=== PATIENT | male | born 1965 | race Caucasian/White ===

== ENCOUNTER 2016-09-08 22:19 | Inpatient (IN) | payer BC ==
[~2016-09-08] VITALS: Ht 172.7 cm; Wt 113.5 kg
[~2016-09-08 22:19] MED LIST: ALEVE220 M2 PO; AMLODIPINE-BEN1 EACH PO; CLOPIDOGREL75 MG PO; DAILY VALUE1 EACH PO; DICLOFENAC SODI50 MG PO; ESOMEPRAZOLE MA40 MG PO; FENOFIBRATE145 M1 PO; FORTAMET500 M1 PO; HYGROTON25 MG PO; IMDUR30 MG PO; LOSARTAN POTASS25 MG PO; LOTREL 10/21 CAPSULE PO; LOTREL 10/41 CAPSULE PO; LOTREL 5/201 CAPSULE PO; METFORMIN HCL500 MG PO; METOPROLOL SUC100 MG PO; METOPROLOL TAR100 MG PO; NAPROXEN500 MG PO; NASONEX17 GM BOTH NARES; NEXIUM20 MG PO; NITROSTAT0.4 MG SL; SIMVASTATIN40 MG PO; SIMVASTATIN80 MG PO; ST. JOSEPH ASPI81 MG PO; VENTOLIN HFA18 GM IH
[2016-09-08 22:54] LABS: HEMATOCRIT 42.5 % (38.0-50.0); MCH 28.1 PG (29.0-34.0); MCHC 33.4 G/DL (30.0-36.0); MEAN PLAT.VOLUME 10.4 uM^3 (9.0-12.4); PLATELET COUNT 291 K/uL (156-360); RBC DIS.WIDTH-CV 12.8 % (11.8-14.6); RBC DIS.WIDTH-SD 38.8 % (39-53); RED BLOOD COUNT 5.06 M/uL (4.00-5.50); WHITE BLOOD COUNT 8.2 K/uL (4.1-10.2)
[2016-09-08 23:06] LABS: PROTHROMBIN TIME 10.3 (9.2-11.2); PTT 28.2 (25-32)
[2016-09-08 23:09] LABS: CHLORIDE 98 mEq/L (99-109); POTASSIUM 3.6 mEq/L (3.7-5.4); SODIUM 137 mEq/L (136-147)
[2016-09-08 23:11] LABS: GLUCOSE 341 mg/dL (70-99)
[2016-09-08 23:12] LABS: ANION GAP 12 MEQ/L (2-14)
[2016-09-08 23:13] LABS: TOTAL BILIRUBIN 0.3 mg/dL (0.0-1.0)
[2016-09-08 23:14] LABS: ALKALINE PHOSPHATASE 99 IU/L (3-129)
[2016-09-08 23:15] LABS: GFR ESTIMATE (CALCULATED) 52 mL/min/
[2016-09-08 23:16] LABS: UREA NITROGEN (BUN) 18 mg/dL (9-23)
[2016-09-08 23:18] LABS: LIPASE 20 U/L (1.0-51.0)
[2016-09-08 23:21] LABS: TROP-I INTERPRETATION NEGATIVE; TROPONIN-I 0.12 ng/mL (0.0-0.30)
[2016-09-09] MEDS ORDERED: METOPROLOL SUC200 MG PO (01:50)
[2016-09-09] MEDS ORDERED: EXFORGE 5/321 TABLET PO (01:50)
[2016-09-09] MEDS ORDERED: CLOPIDOGREL75 MG PO (01:51)
[2016-09-09] MEDS ORDERED: NITROSTAT0.4 MG SL (01:51)
[2016-09-09] MEDS ORDERED: ATORVASTATIN CA40 MG PO (01:52)
[2016-09-09] MEDS ORDERED: ISOSORBIDE MONO60 MG PO (01:52)
[2016-09-09 02:39] LABS: SERUM ETHYL ALCOHOL < 10 mg/dL
[2016-09-09 03:17] LABS: POINT-OF-CARE METER ID UU14100415
[2016-09-09 03:52] VITALS: BP 124/67
[2016-09-09 05:56] LABS: HDL CHOLESTEROL 28 MG/DL (Desirable>=40); LDL CHOLESTEROL 19 mg/dL (Desirable<100); MAGNESIUM 1.8 mg/dl (1.3-2.7); NON-HDL CHOLESTEROL 62 mg/dL (Desirable<160); TOTAL CHOLESTEROL 90 mg/dL (Desirable<200); TRIGLYCERIDES 213 MG/DL (Normal: <150)
[2016-09-09 06:07] LABS: TROP-I INTERPRETATION POSITIVE; TROPONIN-I 0.81 ng/mL (0.0-0.30)
[2016-09-09 06:34] LABS: Estimated Average Glucose 203 mg/dL (70-123); HEMOGLOBIN A1c (GLYCOHEMOGLOB) 8.7 % HGB (Below 5.7)
[2016-09-09 08:15] VITALS: BP 179/95
[2016-09-09 10:01] LABS: POINT-OF-CARE METER ID UU13113700
[2016-09-09 13:15] LABS: TROP-I INTERPRETATION POSITIVE
[2016-09-09 15:10] VITALS: BP 128/67
[2016-09-09 16:21] LABS: POINT-OF-CARE METER ID UU13113698
[2016-09-09 19:36] VITALS: BP 145/67
[2016-09-10] VITALS (7 sets, daily range): BP systolic 124–172; BP diastolic 56–92
[2016-09-10 07:10] LABS: ANION GAP 10 MEQ/L (2-14); CHLORIDE 100 MEQ/L (99-109); GFR ESTIMATE (CALCULATED) > 59 mL/min/; GLUCOSE 178 mg/dL (70-99); POTASSIUM 4.1 MEQ/L (3.7-5.4); SAMPLE HEMOLYSIS CHECK 0; SAMPLE ICTERIC CHECK 0; SAMPLE LIPEMIA CHECK 0; SODIUM 140 MEQ/L (136-147); UREA NITROGEN (BUN) 14 mg/dL (9-23)
[2016-09-10 07:23] LABS: TROPONIN-I 2.95 ng/mL (0.0-0.30)
[2016-09-10 07:24] LABS: TROP-I INTERPRETATION POSITIVE
[2016-09-10 08:38] LABS: POINT-OF-CARE METER ID UU13113781
[2016-09-10 17:15] LABS: POINT-OF-CARE METER ID UU13113698
[2016-09-10 21:13] LABS: POINT-OF-CARE METER ID UU13113781
[2016-09-11] VITALS (8 sets, daily range): BP systolic 120–149; BP diastolic 54–78
[2016-09-11 12:54] LABS: POINT-OF-CARE METER ID UU13113819
[2016-09-11 15:48] LABS: POINT-OF-CARE METER ID UU14174216
[2016-09-11 20:23] LABS: EOSINOPHIL (%) 1.8 % (0-5); EOSINOPHIL COUNT 0.2 K/uL (0-0.3); HEMATOCRIT 39.2 % (38.0-50.0); IMMATURE GRANULOCYTE (%) 0.4 % (0.0-0.7); LYMPHOCYTE COUNT 1.8 K/uL (1.0-2.8); MCH 29.5 PG (29.0-34.0); MCHC 34.2 G/DL (30.0-36.0); MCV 86.3 FL (86-99); MEAN PLAT.VOLUME 10.9 uM^3 (9.0-12.4); MONOCYTE (%) 6.5 % (3-12); MONOCYTE COUNT 0.6 K/uL (0-0.8); NEUTROPHIL (%) 73.1 % (45-76); NEUTROPHIL COUNT 7.2 K/uL (1.8-6.4); PLATELET COUNT 310 K/uL (156-360); RBC DIS.WIDTH-CV 13.1 % (11.8-14.6); RED BLOOD COUNT 4.54 M/uL (4.00-5.50); WHITE BLOOD COUNT 9.8 K/uL (4.1-10.2)
[2016-09-11 21:00] LABS: POINT-OF-CARE METER ID UU14174216
[2016-09-12 03:56] VITALS: BP 132/89
[2016-09-12 06:46] LABS: EOSINOPHIL (%) 2.6 % (0-5); EOSINOPHIL COUNT 0.2 K/uL (0-0.3); HEMATOCRIT 41.1 % (38.0-50.0); IMMATURE GRANULOCYTE (%) 0.4 % (0.0-0.7); LYMPHOCYTE COUNT 1.6 K/uL (1.0-2.8); MCH 27.5 PG (29.0-34.0); MCHC 31.6 G/DL (30.0-36.0); MCV 87.1 FL (86-99); MEAN PLAT.VOLUME 10.5 uM^3 (9.0-12.4); MONOCYTE (%) 8.6 % (3-12); MONOCYTE COUNT 0.7 K/uL (0-0.8); NEUTROPHIL (%) 67.8 % (45-76); NEUTROPHIL COUNT 5.5 K/uL (1.8-6.4); PLATELET COUNT 289 K/uL (156-360); RBC DIS.WIDTH-CV 13.2 % (11.8-14.6); RBC DIS.WIDTH-SD 41.8 % (39-53); RED BLOOD COUNT 4.72 M/uL (4.00-5.50)
[2016-09-12 07:00] VITALS: BP 136/74
[2016-09-12 07:13] LABS: ANION GAP 9 MEQ/L (2-14); CHLORIDE 102 MEQ/L (99-109); GFR ESTIMATE (CALCULATED) > 59 mL/min/; GLUCOSE 189 mg/dL (70-99); POTASSIUM 4.2 MEQ/L (3.7-5.4); SAMPLE HEMOLYSIS CHECK 0; SAMPLE ICTERIC CHECK 0; SAMPLE LIPEMIA CHECK 0; SODIUM 140 MEQ/L (136-147); UREA NITROGEN (BUN) 16 mg/dL (9-23)
[2016-09-12 07:20] VITALS: BP 136/74
[2016-09-12 08:00] LABS: POINT-OF-CARE USER ID ENVKC36
[2016-09-12 11:34] VITALS: BP 132/96
[2016-09-12 12:16] LABS: POINT-OF-CARE METER ID UU14174216; POINT-OF-CARE USER ID ENVKC36
[2016-09-12 15:53] VITALS: BP 138/70
[2016-09-12 16:34] LABS: POINT-OF-CARE METER ID UU13113781; POINT-OF-CARE USER ID ENVKC36
[2016-09-12 19:06] VITALS: BP 138/73
[2016-09-12] MEDS ORDERED: BRILINTA90 MG PO (19:52)
[2016-09-12] MEDS ORDERED: TYLENOL REGULA325 MG PO (19:55)
[2016-09-12] MEDS ORDERED: Tums,OsCal PO (19:57)
[2016-09-12] MEDS ORDERED: ADVAIR HFA120 INHAL1 IH (19:57)
[2016-09-12] MEDS ORDERED: DOCUSATE SODIU100 MG PO (19:58)
[2016-09-12] MEDS ORDERED: LASIX20 MG PO (19:59)
[2016-09-12] MEDS ORDERED: METOPROLOL SUC200 MG PO (20:07)
[2016-09-12] MEDS ORDERED: EXFORGE 5/161 TABLET PO (20:09)
== END 2016-09-12 21:28 | disposition home or self-care (01) | DRG 246 ==
LOC: EME 22:19 → EDOF 09-09 02:00 → 5WEST 09-09 03:34 → 4EAST 09-09 06:15 → 5WEST 09-09 06:15 → 4EAST 09-09 15:05
PROVIDERS: Emergency Medicine; Family Medicine Sports Medicine; Hospitalist; Internal Medicine Cardiovascular Disease; Physician Assistant Medical
DX: I21.4 Non-ST elevation (NSTEMI) myocardial infarction (principal); N17.1 Acute kidney failure with acute cortical necrosis; Z68.41 Body mass index [BMI] 40.0-44.9, adult; I50.30 Unspecified diastolic (congestive) heart failure; E66.01 Morbid (severe) obesity due to excess calories; F95.2 Tourette's disorder; I10 Essential (primary) hypertension; E87.6 Hypokalemia; E78.5 Hyperlipidemia, unspecified; R31.9 Hematuria, unspecified; K80.20 Calculus of gallbladder without cholecystitis without obstruction; Z79.01 Long term (current) use of anticoagulants; Z87.891 Personal history of nicotine dependence; Z95.5 Presence of coronary angioplasty implant and graft
CPT/HCPCS: 71010; 71275; 74177; 76705; 80048; 80053; 80061; 80306 90; 81003; 82948; 83036; 83690; 83735; 84484; 85025; 85027; 85347; 85610; 85730; 93005; 94640; 99202; 99281; 99285; C1725; C1760; C1769; C1874; C1887; C1894; G0480; J0360; J0690; J1644; J1650; J1815; J1940; J2250; J2270; J2405; J3010; J3246; J3480; J7030; J7050; S0028